=== PATIENT | male | born 1940 | race Caucasian/White ===

== ENCOUNTER 2017-06-27 10:25 | Outpatient (CLI) | payer MEDICARE ==
--- NOTE | 2017-06-27 14:31 | RAD ---
TWO VIEWS CHEST: History: Dyspnea. Comparison: 05-21-16 FINDINGS: Hazy parenchymal infiltrate in the right midlung field is seen suggesting pneumonia. This is a new f inding. Linear density in the left peripheral lung appears to represent chronic stranding or atelectasis. IMPRESSION: Evidence of new infiltrate in the right midlung field. Recommend follow up. POS: [facility]
== END 2017-06-27 10:26 | disposition home or self-care (01) ==
LOC: RAD 10:25
PROVIDERS: ATTEND Internal Medicine Critical Care Medicine
DX: R06.00 Dyspnea, unspecified (principal); R91.8 Other nonspecific abnormal finding of lung field
CPT/HCPCS: 71020